=== PATIENT | female | born 1970 | race Caucasian/White ===

== ENCOUNTER 2022-07-17 10:39 | Emergency (ER) | payer OTHER ==
[~2022-07-17] VITALS: Ht 170.2 cm; Wt 118.0 kg
[~2022-07-17 10:39] MED LIST: LORTAB 5 OR; MELOXICAM7.5 MG PO; PENICILLN VK500 MG OR; PROMETHAZINE25 MG OR
[2022-07-17] MEDS ORDERED: NORVASC2.5 M1 PO (10:54)
[2022-07-17] MEDS ORDERED: LISINOPRIL2.5 MG PO (10:54)
[2022-07-17] MEDS ORDERED: MOTRIN800 MG PO (11:08)
[2022-07-17 11:18] VITALS: BP 171/76
== END 2022-07-17 11:20 | disposition home or self-care (01) ==
LOC: ED 10:39
DX: M75.52 Bursitis of left shoulder (principal); I10 Essential (primary) hypertension